=== PATIENT | male | born 1975 | race Caucasian/White ===

== ENCOUNTER 2017-10-11 09:00 | Emergency (ER) | END 2017-10-11 13:55 | disposition home or self-care (01) ==

== ENCOUNTER 2018-12-17 00:47 | Emergency (ER) | payer MEDICAID ==
[~2018-12-17] VITALS: Ht 190.5 cm; Wt 96.7 kg
[~2018-12-17 00:47] MED LIST: CITA20TA8 PO; DICL75TA2 PO; IBUP800T48 PO; OMEP40CA6 PO; ONDA4TAB14 PO
[2018-12-17 00:48] VITALS: Ht 190.5 cm; Wt 96.7 kg
[2018-12-17] MEDS ORDERED: ONDANSETRON (ODT) 4 MG TAB ODT STA (03:12)
[2018-12-17] MEDS ORDERED: LIDOCAINE/MYLANTA 40 ML BTL PO ONE (03:30)
[2018-12-17] MEDS ORDERED: FAMOTIDINE 20 MG TAB PO ONE (03:30)
[2018-12-17] MEDS ORDERED: morphine 4 MG/ML VIAL IV STA (05:41)
[2018-12-17] MEDS ORDERED: SOD CHLORIDE 0.9% 1,000 ML IV ONE (06:00)
[2018-12-17] MEDS ORDERED: ASPIRIN 325 MG TAB PO ONE (06:00)
[2018-12-17 08:26] VITALS: BP 139/87; PULSE 53; RESP 19
== END 2018-12-17 08:45 | disposition home or self-care (01) ==
LOC: FTE 00:47
DX: S62.522A Displaced fracture of distal phalanx of left thumb, initial encounter for closed fracture (principal); I10 Essential (primary) hypertension; R10.13 Epigastric pain; S60.212A Contusion of left wrist, initial encounter; S60.222A Contusion of left hand, initial encounter; W22.8XXA Striking against or struck by other objects, initial encounter; Y92.89 Other specified places as the place of occurrence of the external cause
CPT/HCPCS: 29125; 36415; 71046; 73110; 73130; 76705; 80053; 82150; 82962; 83690; 84484; 85025; 85610; 85730; 93005; 96360; J7030; Z7502; Z7610; J2270

== ENCOUNTER 2018-12-17 18:44 | Emergency (ER) | payer MEDICAID ==
[~2018-12-17] VITALS: Ht 190.5 cm; Wt 96.8 kg
[2018-12-17 18:52] VITALS: BP 145/88; PULSE 73; RESP 18; Ht 190.5 cm; Wt 96.8 kg
== END 2018-12-18 04:17 | disposition left against medical advice (07) ==
LOC: FTE 18:44
DX: Z53.21 Procedure and treatment not carried out due to patient leaving prior to being seen by health care provider (principal)